=== PATIENT | male | born 1995 | race Caucasian/White ===

== ENCOUNTER 2018-01-30 22:40 | Emergency (ER) | payer BC ==
[~2018-01-30] VITALS: Ht 177.8 cm; Wt 104.3 kg
[~2018-01-30 22:40] MED LIST: BACTRIM DS 8001 TA1 PO; CATAFLAM50 MG PO; CIPRO500 MG PO; CYCLOBENZAPRINE10 MG PO; KUVAN PO; NAPROSYN500 MG PO
[2018-01-30 23:46] LABS: BASO % 0.3 % (0.0-1.0); EOS % 0.1 % (1.0-4.0); HEMOGLOBIN 14.2 g/dl (14.0-18.0); LYMPH # 1.1 10*3/uL (1.3-4.4); LYMPH % 6.9 % (27.0-41.0); MEAN CELL VOLUME 89.7 fl (80.0-94.0); MEAN CORPUSCULAR HGB 32.6 pg (27.0-31.0); MEAN CORPUSCULAR HGB CONC 36.4 g/dl (33.0-37.0); MONO # 0.9 10*3/uL (0.1-1.0); MONO % 5.7 % (3.0-9.0); NEUT # 13.8 10*3/uL (2.3-7.9); NEUT % 86.4 % (47.0-73.0); PLATELET COUNT AUTOMATED 207 10*3/uL (130-400); RED BLOOD COUNT 4.35 10*6/uL (4.50-5.90); RED CELL DISTRI WIDTH 12.3 % (0-14.5)
[2018-01-30 23:53] LABS: ALKALINE PHOSPHATASE 52 U/L (45-117); BUN 9 mg/dl (7-24); CHLORIDE 106 mmol/L (98-107); CREATININE 0.93 mg/dL (0.70-1.30); POTASSIUM 3.7 mmol/L (3.5-5.1); SGOT/AST 100 IU/L (3-35); SGPT/ALT 71 U/L (12-78); SODIUM 137 mmol/L (136-145); TOTAL PROTEIN 7.2 gm/dL (6.4-8.2); TROPONIN I < 0.015 ng/ml (<0.045)
[2018-01-31 00:19] VITALS: BP 121/76
== END 2018-01-31 00:30 | disposition home or self-care (01) ==
LOC: ED 22:40
PROVIDERS: Nurse Practitioner Family
DX: B34.9 Viral infection, unspecified (principal); F17.200 Nicotine dependence, unspecified, uncomplicated; Z79.899 Other long term (current) drug therapy

== ENCOUNTER → 2020-07-26 | Outpatient (CLI) | payer BC ==
[2020-07-26 11:05] LABS: BASO # 0.1 10*3/uL (0.0-0.1); BASO % 0.8 % (0.0-1.0); EOS # 0.2 10*3/uL (0.0-0.4); EOS % 2.8 % (1.0-4.0); HEMATOCRIT 42.8 % (42.0-52.0); LYMPH # 2.2 10*3/uL (1.3-4.4); LYMPH % 35.3 % (27.0-41.0); MEAN CELL VOLUME 90.3 fl (80.0-94.0); MEAN CORPUSCULAR HGB 31.2 pg (27.0-31.0); MEAN CORPUSCULAR HGB CONC 34.6 g/dl (33.0-37.0); MEAN PLATELET VOLUME 10.4 fl (9.6-12.3); MONO # 0.5 10*3/uL (0.1-1.0); NEUT # 3.2 10*3/uL (2.3-7.9); NEUT % 52.9 % (47.0-73.0); PLATELET COUNT AUTOMATED 264 10*3/uL (130-400); RED BLOOD COUNT 4.74 10*6/uL (4.50-5.90); RED CELL DISTRI WIDTH 11.5 % (0-14.5); WHITE BLOOD COUNT 6.1 10*3/uL (4.8-10.8)
[2020-07-26 11:23] LABS: ALBUMIN 4.2 gm/dl (3.1-4.5); ALKALINE PHOSPHATASE 55 U/L (45-117); BILIRUBIN, DIRECT 0.1 mg/dL (0.0-0.2); CHLORIDE 109 mmol/L (98-107); CHOLESTEROL 156 mg/dL (<200); CREATININE 1.06 mg/dL (0.70-1.30); HDL CHOLESTEROL 41 mg/dl (40-60); LDL CHOLESTEROL 104 mg/dL (9-159); POTASSIUM 4.3 mmol/L (3.5-5.1); SGOT/AST 13 IU/L (3-35); SGPT/ALT 29 U/L (12-78); SODIUM 140 mmol/L (136-145); T3 UPTAKE 33 % (31-39); THYROXINE (T4) TOTAL 8.1 ug/dl (4.5-12.1); TOTAL PROTEIN 7.8 gm/dL (6.4-8.2); TRIGLYCERIDES 55 mg/dl (<150); VLDL CHOLESTEROL 11 mg/dL (6-40)
[2020-07-26 11:28] LABS: BUN 18 mg/dl (7-24)
[2020-07-26 12:26] LABS: VITAMIN D, 25-HYDROXY 29.7 ng/mL (30-100)
== END | disposition home or self-care (01) ==
LOC: LAB 10:24
DX: Z51.81 Encounter for therapeutic drug level monitoring (principal); Z79.891 Long term (current) use of opiate analgesic